=== PATIENT | female | born 1940 | race Caucasian/White ===

== ENCOUNTER 2017-02-18 18:27 | Emergency (ER) | payer OTHER, MEDICARE ==
[2017-02-18 18:44] VITALS: BP 128/83; PULSE 60; TEMP 98.4; BMI 26.5
[2017-02-18] MEDS ORDERED: CYCLOBENZAPRINE HCL 10 MG TABLET (FP) PO ONE (19:40)
[2017-02-18] MEDS ORDERED: KETOROLAC TROMETHAMINE 60 MG/2 ML VIAL IM ONE (19:40)
--- NOTE | 2017-02-18 19:41 | PDOC ---
History of Present Illness - General Chief Complaint: Back Pain Stated Complaint: BACK PAIN Time Seen by Provider: 02/18/17 19:30 History Source: Patient Exam Limitations: No Limitations - History of Present Illness Initial Comments: 02/18/17 19:40 c/o back pain onset this morning. States was twisting yesterday and may have pulled a muscle, however has history of kidney stones in with patient was uncertain as to whether was related. States urine has been a darker yellow however not foul-smelling nor was there any blood. States the pain that she's having is not similar to the pain she had 3 years ago. Took Aleve yesterday with minimal resolved. Denies fever, nausea vomiting, any other related illness. 02/18/17 19:58 Occurred: reports: just prior to arrival Severity: reports: mild, moderate Pain Location: reports: back Method of Injury: Yes: unknown Modifying Factors: improves with: None Loss of Consciousness: no loss of consciousness Associated Symptoms (Fall): denies symptoms Past History - Travel Traveled outside of the country in the last 30 days: No Close contact w/someone who was outside of country & ill: No - Past Medical History Allergies/Adverse Reactions: Allergies Allergy/AdvReac Type Severity Reaction Status Date / Time lisinopril Allergy Verified 02/18/17 18:45 Home Medications: Ambulatory Orders Bimatoprost [Lumigan] 1 drop OU HS 06/14/12 Hydrochlorothiazide [Hctz] 12.5 mg PO DAILY 06/14/12 Multivitamin [Multivitamins] 1 each PO DAILY 06/14/12 Pilocarpine 2% [Pilostat 2% -] 1 drop OD BID 11/03/14 Atorvastatin Ca [Lipitor] 20 mg PO HS tablet 06/02/15 Cholecalciferol (Vitamin D3) [Vitamin D3 -] 2,000 unit PO DAILY tab 06/02/15 Dorzolamide HCl [Trusopt 2% -] 1 drop OU BID drops 06/02/15 Latanoprost 0.005% Eye Drops [Xalatan 0.005% Eye Drops -] 1 drop OU HS drops Levothyroxine [Synthroid -] 25 mcg PO DAILY@0700 tablet 06/02/15 Metoprolol Succinate [Toprol XL -] 50 mg PO DAILY tab.sr.24h 06/02/15 Timolol 0.5% [Timoptic 0.5%] 1 drop OU BID drops 06/02/15 Aspirin [Ecotrin] 81 mg PO ASDIR 02/21/16 Aspirin Coated [Ecotrin -] 81 mg PO DAILY tablet.ec 02/25/16 Atorvastatin Ca [Lipitor] 20 mg PO HS tablet 02/25/16 Levothyroxine [Synthroid -] 25 mcg PO DAILY@0700 tablet 02/25/16 Metoprolol Succinate [Toprol XL -] 25 mg PO DAILY tab.sr.24h 02/25/16 Pantoprazole Sodium [Protonix -] 40 mg PO DAILY #30 tablet.ec 02/25/16 Cyclobenzaprine HCl [Flexeril 10 mg] 10 mg PO BID PRN #14 tablet 02/18/17 Nitrofurantoin Macrocrystal [Macrodantin -] 100 mg PO BID #14 capsule 02/18/17 Anemia: No Asthma: No Cancer: Yes (LEFT BREAST CA 2006) Cardiac Disorders: Yes (STENT) CVA: No COPD: No CHF: No Dementia: No Diabetes: No GI Disorders: No Disorders: No HTN: Yes Hypercholesterolemia: Yes Liver Disease: No Seizures: No Thyroid Disease: Yes (HYPO) - Surgical History Abdominal Surgery: Yes Appendectomy: Yes Cardiac Surgery: No Cholecystectomy: No Neurologic Surgery: No Orthopedic Surgery: Yes - Immunization History Immunization Up to Date: Yes - Psycho/Social/Smoking Cessation Hx Anxiety: No Suicidal Ideation: No Smoking Status: No Smoking History: Former smoker Have you smoked in the past 12 months: No Number of Cigarettes Smoked Daily: 0 If you are a former smoker, when did you quit?: 1974 Information on smoking cessation initiated: No Hx Alcohol Use: Yes (OCCASIONAL GLASS OF WINE) Drug/Substance Use Hx: No Substance Use Type: None Hx Substance Use Treatment: No Review of Systems - Review of Systems Able to Perform ROS?: Yes Is the patient limited Swedish proficient: Yes Constitutional: Yes: Symptoms Reported, See HPI, Malaise. No: Chills, Fever, Loss of Appetite HEENTM: Yes: See HPI. No: Symptoms Reported Respiratory: No: Symptoms reported Musculoskeletal: Yes: Symptoms Reported, See HPI, Back Pain, Muscle Pain, Muscle Weakness Integumentary: Yes: Symptoms Reported All Other Systems: Reviewed and Negative *Physical Exam - Vital Signs Last Vital Signs Temp Pulse Resp BP Pulse Ox 98.4 F 60 18 128/83 95 02/18/17 18:41 02/18/17 18:41 02/18/17 18:41 02/18/17 18:41 02/18/17 18:41 - Physical Exam General Appearance: Yes: Nourished, Appropriately Dressed, Apparent Distress HEENT: positive: VITO, Normal ENT Inspection Neck: positive: Supple. negative: Tender Respiratory/Chest: positive: Lungs Clear, Normal Breath Sounds Cardiovascular: positive: Regular Rate Gastrointestinal/Abdominal: positive: Soft. negative: Tender Musculoskeletal: positive: Normal Inspection, Decreased Range of Motion, Muscle Spasm (palpable spasm noted to the right paravertebral spinous muscles primarily lower thoracic up to lumbar area. Has no spine tenderness, range of motion is difficult secondary to acute onset of tenderness without movement and twisting.). 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 *DC/Admit/Observation/Transfer Diagnosis at time of Disposition: UTI (urinary tract infection) Qualifiers: Urinary tract infection type: acute cystitis Hematuria presence: with hematuria Qualified Code(s): N30.01 - Acute cystitis with hematuria Low back strain Qualifiers: Encounter type: initial encounter Qualified Code(s): S39.012A - Strain of muscle, fascia and tendon of lower back, initial encounter - Discharge Dispostion Disposition: HOME Condition at time of disposition: Stable Admit: No - Prescriptions Prescriptions: Cyclobenzaprine HCl [Flexeril 10 mg] 10 mg PO BID PRN #14 tablet PRN Reason: spasm Nitrofurantoin Macrocrystal [Macrodantin -] 100 mg PO BID #14 capsule - Referrals Referrals: Yves Pena MD [Primary Care Provider] - - Patient Instructions Printed Discharge Instructions: DI for Urinary Tract Infection (UTI), DI for Back Strain or Sprain Additional Instructions: Rest, drink lots of fluids: Teas, water, soups Avoid contact with others until fevers and symptoms resolved Lots of handwashing and good hygiene Continue [id number] medications for symptomatic relief Tylenol or Motrin for fever and pain Continue all of antibiotics until completed Followup with private physician in one week for repeat urinalysis/reevaluation Return to emergency department for worsened symptoms, fevers, dehydration Rest, no heavy lifting or exercise until pain is resolved Hot soaks to neck and low back as often as possible/hot showers or Jacuzzis No massage or therapy until spasm is gone Continue Aleve 1 tablets every 6 hours for the next 3 days then as needed for pain and swelling Cyclobenzaprine 1-10mg every 8 hours as needed for spasm If not significant improvement within 24 hours with medication and rest regime, followup with private physician for change in medications and /or therapy. - Post Discharge Activity Work/School Note: Back to Work
[2017-02-18] MEDS ORDERED: KETOROLAC TROMETHAMINE 60 MG/2 ML VIAL ONE (19:50)
[2017-02-18] MEDS ORDERED: CYCLOBENZAPRINE HCL 10 MG TABLET (FP) ONE (20:08)
[2017-02-18 20:11] LABS: URINE APPEARANCE CLEAR; URINE BILIRUBIN NEGATIVE (NEGATIVE); URINE COLOR LTYELLOW; URINE GLUCOSE (UA) NEGATIVE (NEGATIVE); URINE KETONE NEGATIVE (NEGATIVE); URINE NITRITE NEGATIVE (NEGATIVE); URINE PROTEIN NEGATIVE (NEGATIVE); URINE UROBILINOGEN NEGATIVE E.U./dl (0.2-1.0)
[2017-02-18 20:12] LABS: URINE BLOOD 1+ (NEGATIVE); URINE LEUK ESTERASE 1+ (NEGATIVE)
[2017-02-18 20:16] LABS: URINE MUCUS RARE; URINE RBC 4 /hpf (0-3); URINE WBC 7 /hpf (3-5)
[2017-02-18] MEDS ORDERED: NITROFURANTOIN MACROCRYSTAL 50 MG CAPSULE (FP) ONE (20:36)
[2017-02-18] MEDS ORDERED: NITROFURANTOIN MACROCRYSTAL 50 MG CAPSULE (FP) PO SCH (20:45)
== END 2017-02-18 20:49 | disposition home or self-care (01) ==
LOC: JERFT 18:27
PROC: 3E0233Z Introduction of Anti-inflammatory into Muscle, Percutaneous Approach (ICD-10-PCS; principal; 2017-02-18)
DX: X50.1XXA Overexertion from prolonged static or awkward postures, initial encounter (principal); Y93.89 Activity, other specified; Y92.89 Other specified places as the place of occurrence of the external cause; Y99.8 Other external cause status; I25.10 Atherosclerotic heart disease of native coronary artery without angina pectoris; I10 Essential (primary) hypertension; Z95.5 Presence of coronary angioplasty implant and graft; E03.9 Hypothyroidism, unspecified; E78.00 Pure hypercholesterolemia, unspecified; Z85.3 Personal history of malignant neoplasm of breast
CPT/HCPCS: 81003; 81015; 87086; 99281-25

== ENCOUNTER 2020-07-26 05:04 | Day surgery (SDC) | payer OTHER, MEDICARE ==
[2020-07-25 14:25] VITALS: BMI 26.2
[2020-07-26] MEDS ORDERED: PROPOFOL 20 ML ONE (13:00)
[2020-07-26] MEDS ORDERED: MIDAZOLAM HCL 2 MG/2 ML SINGLE DOSE VIAL ONE (13:26)
[2020-07-26] MEDS ORDERED: ceFAZolin SODIUM 1 GM VIAL IVPB ONE (13:37)
[2020-07-26] MEDS ORDERED: ceFAZolin SODIUM 1 GM VIAL ONE (13:39)
[2020-07-26] MEDS ORDERED: LIDOCAINE HCL 1%, 10 MG/ML (20ML VIAL) ONE (13:45)
[2020-07-26] MEDS ORDERED: LIDOCAINE HCL 1%, 10 MG/ML (20ML VIAL) NR ONE (13:48)
--- NOTE | 2020-07-26 14:22 | OP ---
Operative Note - Note: Operative Date: 07/26/20 Pre-Operative Diagnosis: urethral stricture and caruncle Operation: distal urethroplasty Post-Operative Diagnosis: Same as Pre-op Surgeon: Ingris Tinajero Anesthesia: General Specimens Removed: distal urethra Estimated Blood Loss (mls): 0 Instrument used (Debridements only): 0 Drains & Tubes with Location: 20f 10cc bundy Drains, Volume Out (mls): 0 Blood Volume Replaced (mls): 0 Fluid Volume Replaced (mls): 0 Operative Report Dictated: Yes
[2020-07-26] MEDS ORDERED: ACETAMINOPHEN 325 MG TABLET (FP) PO PRN (14:23)
--- NOTE | 2020-07-26 14:37 | OP ---
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
[2020-07-26] MEDS ORDERED: ONDANSETRON 4 MG/2 ML VIAL IVPUSH PRN (15:05)
[2020-07-26 15:50] VITALS: TEMP 97.8
[2020-07-26 17:09] VITALS: BP 150/80; PULSE 58
--- NOTE | 2020-07-26 19:48 | HP ---
DATE OF ADMISSION: 07/26/2020 DATE OF PROCEDURE: 07/26/2020 HISTORY OF PRESENT ILLNESS: The patient is an 78-year-old female with history of recurrent urinary tract infection including frequency, dysuria, urgency, and dyspareunia. She is G2, P2, postmenopausal. She has been treated with Cipro, Keflex, Macrobid, and Pyridium without any help. 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 She underwent a left lumpectomy for localized cancer. She also has history of skin cancer. She denies diabetes, high blood pressure or cardiac disease. PHYSICAL EXAMINATION: Revealed atrophic vaginitis with a large purple pedunculated caruncle extending outside the meatus. There was also scarring and dryness of the meatus. Her Carlos test is positive. LABORATORY: Her urine is positive for blood. Her urine cytology was negative for neoplasm. PLAN: Patient will undergo urethral dilation and excision of urethral lesion. Patient on further questioning reveals that she is on lisinopril, Synthroid, Toprol and Lipitor. Will continue with procedure. Albaro [id number]
--- NOTE | 2020-07-27 13:32 | OP ---
DATE OF OPERATION: 07/26/2020 PREOPERATIVE DIAGNOSIS: Urethral stricture disease and urethral caruncle. POSTOPERATIVE DIAGNOSIS: Urethral stricture disease and urethral caruncle. OPERATIVE PROCEDURE: Distal urethroplasty, excision of caruncle, and urethral dilation. ANESTHESIA: General. DESCRIPTION OF PROCEDURE: Under above-stated anesthesia, patient is prepped and draped in the usual sterile manner. She is placed in the dorsal lithotomy position. The distal urethra was excised using a circumferential incision. The entire urethra including the caruncle was excised. The edges of the midurethra were debrided using both blunt and sharp dissection. The midurethra was advanced to the meatus at the vestibule of the vaginal opening and suture ligated using 5-0 Vicryl suture ligatures. No active bleeding was noted. A Handley catheter was placed and connected to a leg bag. Vaginal packing was also placed. The patient tolerated the procedure well. She returned to the recovery room in good condition. Albaro [id number]
--- NOTE | 2020-07-30 18:17 | PATH ---
Surgical Pathology Report Patient Name: SEKOU MEJIA [facility]. Rec. #: [id number] /Age/Gender: 1940 (Age: 80) / F Account: [id number] Location: [facility] SURGICAL Taken: 07/26/2020 Received: 07/29/2020 Reported: 07/30/2020 Physicians: Ingris Tinajero M.D. Specimen(s) Received URETHRAL CARUNCLE Clinical History Urethral caruncle Final Diagnosis URETHRAL CARUNCLE, EXCISION: CONSISTENT WITH URETHRAL CARUNCLE. Electronically Signed Andrew Gibbs M.D. Gross Description Received in formalin, labeled "urethral caruncle" is a arredondo, irregular portion of soft tissue measuring 0.5 cm. in greatest dimension. The specimen is submitted in toto in one cassette.
== END 2020-07-26 17:15 | disposition home or self-care (01) ==
LOC: JASU-SURG 05:04
PROVIDERS: ATTEND Urology
PROC: 0TBD0ZZ Excision of Urethra, Open Approach (ICD-10-PCS; principal; 2020-07-26 11:00)
DX: N36.2 Urethral caruncle (principal); N35.92 Unspecified urethral stricture, female
CPT/HCPCS: 88304-TC; 94760

== ENCOUNTER 2021-04-21 14:18 | Emergency (ER) | payer OTHER, MEDICARE ==
[2021-04-21 14:29] VITALS: BMI 26.2
[2021-04-21] MEDS ORDERED: ACETAMINOPHEN 1000 MG/100 ML VIAL (NON FORMULARY) IVPB ONE (15:45)
[2021-04-21] MEDS ORDERED: ACETAMINOPHEN INJECTION 100 ML IVPB ONE (15:58)
[2021-04-21 16:19] LABS: BASO % 0.5 % (0-2.0); EOS % 2.4 % (0-4.5); HEMATOCRIT 43.3 % (32.4-45.2); HEMOGLOBIN 14.6 GM/dL (10.7-15.3); LYMPH % 27.2 % (8-40); MCHC 33.8 g/dl (32.0-36.0); MEAN CELL VOLUME 91.9 fl (80-96); MEAN PLT VOLUME 9.3 fl (7.5-11.1); MONO % 9.2 % (3.8-10.2); NEUT % 60.7 % (42.8-82.8); PLATELET COUNT 205 K/MM3 (134-434); RBC 4.71 M/mm3 (3.60-5.2); RDW 13.7 % (11.6-15.6); WHITE BLOOD COUNT 6.6 K/mm3 (4.0-10.0)
[2021-04-21 16:23] LABS: INR 0.97 (0.83-1.09); PROTHROMBIN TIME (PATIENT) 11.9 SEC (9.7-13.0)
[2021-04-21] MEDS ORDERED: CEFTRIAXONE 1 GM in DEXTROSE 5%-WATER - 50 ML IVPB ONE (16:24)
[2021-04-21 16:26] LABS: ACTIVATED PTT 35.2 SECONDS (25.2-36.5)
[2021-04-21] MEDS ORDERED: CEFTRIAXONE 1 GM/50 ML BAG ONE (16:27)
[2021-04-21 16:31] LABS: EPI CELLS 9 /uL (0-25.1); HYALINE CASTS 0 /uL (0-3.1); PH,URINE 5.5 (5.0-8.0); URINE APPEARANCE CLEAR; URINE BACTERIA 76 /uL (0-1359); URINE BILIRUBIN NEGATIVE (NEGATIVE); URINE COLOR YELLOW; URINE GLUCOSE (UA) NEGATIVE (NEGATIVE); URINE KETONE NEGATIVE (NEGATIVE); URINE LEUK ESTERASE TRACE (NEGATIVE); URINE NITRITE NEGATIVE (NEGATIVE); URINE PROTEIN NEGATIVE (NEGATIVE); URINE RBC 3 /uL (0-23.9); URINE UROBILINOGEN 0.2 mg/dL (0.2-1.0); URINE WBC 20 /uL (0-25.8)
[2021-04-21 16:33] LABS: CALCIUM 9.4 mg/dL (8.5-10.1)
[2021-04-21 16:34] LABS: ALBUMIN 3.9 g/dl (3.4-5.0); BLOOD UREA NITROGEN 10.5 mg/dL (7-18)
[2021-04-21 16:38] LABS: BILIRUBIN,TOTAL 0.9 mg/dL (0.2-1); CREATININE 0.7 mg/dL (0.55-1.3); TOT PROT 7.5 g/dl (6.4-8.2)
[2021-04-21 18:33] VITALS: TEMP 97.4
[2021-04-21 18:46] VITALS: BP 126/74; PULSE 74
== END 2021-04-21 18:54 | disposition home or self-care (01) ==
LOC: JER 14:18
PROC: 3E0333Z Introduction of Anti-inflammatory into Peripheral Vein, Percutaneous Approach (ICD-10-PCS; principal; 2021-04-21)
PROC: 3E03329 Introduction of Other Anti-infective into Peripheral Vein, Percutaneous Approach (ICD-10-PCS; 2021-04-21)
DX: R10.31 Right lower quadrant pain (principal)
CPT/HCPCS: 36415; 74177-TC; 80053; 81003; 83605; 83690; 85025; 85610; 85730; 87086; 93005; 93010; 99285-25; J0131; Q9967

== ENCOUNTER 2021-06-26 04:44 | Day surgery (SDC) | payer OTHER, MEDICARE ==
[2021-06-25 09:20] VITALS: BMI 26.6
[2021-06-26 09:35] VITALS: TEMP 97.3
[2021-06-26 14:24] VITALS: BP 118/55; PULSE 61
== END 2021-06-26 11:18 | disposition home or self-care (01) ==
LOC: JASU-ENDO 04:44
PROVIDERS: ATTEND Internal Medicine Gastroenterology
PROC: 0DB68ZX Excision of Stomach, Via Natural or Artificial Opening Endoscopic, Diagnostic (ICD-10-PCS; 2021-06-26)
PROC: 0DJD8ZZ Inspection of Lower Intestinal Tract, Via Natural or Artificial Opening Endoscopic (ICD-10-PCS; principal; 2021-06-26 08:30)
DX: Z12.11 Encounter for screening for malignant neoplasm of colon (principal); K64.4 Residual hemorrhoidal skin tags; K57.30 Diverticulosis of large intestine without perforation or abscess without bleeding; Z86.010 Personal history of colon polyps; K29.50 Unspecified chronic gastritis without bleeding
CPT/HCPCS: 43239; G0105; 88305-TC; 88342-TC

== ENCOUNTER 2021-11-11 04:21 | Day surgery (SDC) | payer OTHER, MEDICARE ==
[2021-11-10 08:37] VITALS: BMI 24.7
[2021-11-11] MEDS ORDERED: LIDOCAINE HCL/PF 1% SDV 5ML VIAL ONE (07:11)
[2021-11-11] MEDS ORDERED: DEXAMETHASONE SOD PHOSPHATE 10 MG/1 ML VIAL ONE (07:11)
[2021-11-11] MEDS ORDERED: LIDOCAINE HCL 1% PRESERVATIVE FREE - 30ML VIAL IJ ONE ×2 (07:45→08:33)
[2021-11-11] MEDS ORDERED: IOHEXOL 180 MG/1 ML ML IJ ONE ×2 (07:46→08:35)
[2021-11-11] MEDS ORDERED: DEXAMETHASONE SOD PHOSPHATE 10 MG/1 ML VIAL IVPUSH ONE ×2 (07:47→08:36)
[2021-11-11 10:11] VITALS: BP 138/64; PULSE 54; TEMP 97.2
== END 2021-11-11 09:40 | disposition home or self-care (01) ==
LOC: JASU-SURG 04:21
PROVIDERS: ATTEND Pain Medicine Pain Medicine
PROC: 3E0R33Z Introduction of Anti-inflammatory into Spinal Canal, Percutaneous Approach (ICD-10-PCS; 2021-11-11)
PROC: B01BYZZ Fluoroscopy of Spinal Cord using Other Contrast (ICD-10-PCS; 2021-11-11)
PROC: 3E0R3BZ Introduction of Anesthetic Agent into Spinal Canal, Percutaneous Approach (ICD-10-PCS; principal; 2021-11-11 09:00)
DX: M48.061 Spinal stenosis, lumbar region without neurogenic claudication (principal); M54.16 Radiculopathy, lumbar region
CPT/HCPCS: 76000-TC-FY; J1100

== ENCOUNTER 2022-07-03 04:04 | Day surgery (SDC) | payer OTHER, MEDICARE ==
[2022-06-26 13:46] VITALS: BMI 24.7
[2022-07-03] MEDS ORDERED: LIDOCAINE HCL/PF 1% SDV 5ML VIAL ONE ×2 (07:13→07:18)
[2022-07-03] MEDS ORDERED: BUPIVACAINE HCL/PF 0.75% 10 ML VIAL ONE (07:13)
[2022-07-03] MEDS ORDERED: LIDOCAINE HCL 2% (20ML MULTI-DOSE VIAL) ONE (07:22)
[2022-07-03] MEDS ORDERED: LIDOCAINE HCL/PF 2% SDV 5ML VIAL ONE (08:01)
[2022-07-03] MEDS ORDERED: LIDOCAINE HCL 2% 100 MG/5 ML DISP.SYRIN NR ONE ×2 (08:06→08:19)
[2022-07-03] MEDS ORDERED: LIDOCAINE HCL 1%, 10 MG/ML (50 mL VIAL) INF ONE ×3 (08:07→08:20)
[2022-07-03 09:41] VITALS: TEMP 97.7
[2022-07-03 10:21] VITALS: BP 130/60; PULSE 54; RESP 18
== END 2022-07-03 10:00 | disposition home or self-care (01) ==
LOC: JASU-SURG 04:04
PROVIDERS: ATTEND Pain Medicine Pain Medicine
PROC: 01HY3MZ Insertion of Neurostimulator Lead into Peripheral Nerve, Percutaneous Approach (ICD-10-PCS; principal; 2022-07-03 08:00)
DX: G89.4 Chronic pain syndrome (principal); M25.511 Pain in right shoulder
CPT/HCPCS: 64555; C1897

== ENCOUNTER 2023-04-15 18:01 | Emergency (ER) | payer OTHER, MEDICARE ==
[2023-04-15 18:08] VITALS: BP 145/75; PULSE 65; RESP 18; TEMP 98.1; BMI 26.2
[2023-04-15] MEDS ORDERED: ACETAMINOPHEN 325 MG TABLET (FP) PO ONE (18:47)
[2023-04-15] MEDS ORDERED: ACETAMINOPHEN 325 MG TABLET (FP) ONE (20:04)
== END 2023-04-15 21:42 | disposition home or self-care (01) ==
LOC: JER 18:01
PROC: 0HQ1XZZ Repair Face Skin, External Approach (ICD-10-PCS; principal; 2023-04-15)
DX: S01.411A Laceration without foreign body of right cheek and temporomandibular area, initial encounter (principal); W26.8XXA Contact with other sharp object(s), not elsewhere classified, initial encounter; W22.8XXA Striking against or struck by other objects, initial encounter
CPT/HCPCS: 70450-TC; 70486-TC; 72125-TC; 73562-TC-RT-FY; 99285-25

== ENCOUNTER → 2024-08-16 | Day surgery (SDC) | payer OTHER, MEDICARE | END | disposition home or self-care (01) | LOC: JRADUS-SUR 09:12 | PROVIDERS: ATTEND Internal Medicine Hematology & Oncology | PROC: 0H9U3ZX Drainage of Left Breast, Percutaneous Approach, Diagnostic (ICD-10-PCS; principal; 2024-08-16) | DX: N63.22 Unspecified lump in the left breast, upper inner quadrant (principal) | CPT/HCPCS: 19083; 76942-TC; 87899; 88305-TC; 88341-TC; 88342-TC; A4648 ==

== ENCOUNTER 2025-01-18 15:13 | Emergency (ER) | payer OTHER, MEDICARE ==
[2025-01-18 15:17] VITALS: BP 149/66; PULSE 64; RESP 18; TEMP 97.9; BMI 33.2
[2025-01-18] MEDS ORDERED: ACETAMINOPHEN 325 MG TABLET (FP) ONE (17:10)
[2025-01-18] MEDS ORDERED: IBUPROFEN 400 MG TABLET (FP) PO ONE (17:11)
[2025-01-18] MEDS: ACETAMINOPHEN 325 MG TABLET (FP) PO ONE (17:56)
[2025-01-18] MEDS: IBUPROFEN 400 MG TABLET (FP) PO ONE (17:58)
[2025-01-18 18:00] LABS: HEMATOCRIT 43.2 % (32.4-45.2); MCH 29.5 pg (25.7-33.7); MCHC 32.5 g/dl (32.0-36.0); MEAN PLT VOLUME 8.5 fl (7.5-11.1); PLATELET COUNT 229 10^3/uL (134-434); RBC 4.75 M/mm3 (3.60-5.2); WHITE BLOOD COUNT 9.5 K/mm3 (4.0-10.0)
[2025-01-18 18:19] LABS: POTASSIUM 3.9 mmol/L (3.5-5.1)
[2025-01-18 18:21] LABS: ALBUMIN 4.1 g/dl (3.4-5.0); CALCIUM 9.5 mg/dL (8.5-10.1)
[2025-01-18 18:22] LABS: MAGNESIUM 2.3 mg/dL (1.8-2.4)
[2025-01-18 18:25] LABS: CREATININE 0.8 mg/dL (0.55-1.3)
[2025-01-18] MEDS ORDERED: BACITRACIN ZINC 15 GM TUBE TOPICAL OINTMENT ONE (18:25)
[2025-01-18 18:26] LABS: BILIRUBIN,TOTAL 0.5 mg/dL (0.2-1); TOT PROT 7.8 g/dl (6.4-8.2)
== END 2025-01-18 23:13 | disposition home or self-care (01) ==
LOC: JER 15:13
DX: S00.81XA Abrasion of other part of head, initial encounter (principal); X50.1XXA Overexertion from prolonged static or awkward postures, initial encounter
CPT/HCPCS: 36415; 70450-TC; 70486-TC; 71045-TC-FY; 72125-TC; 72170-TC-FY; 73030-TC-LT-FY; 73590-TC-LT-FY; 73610-TC-LT-FY; 73630-TC-LT; 80053; 83735; 84484; 85027; 93005; 93010; 99285-25